=== PATIENT | male | born 1970 | race Caucasian/White ===

== ENCOUNTER 2020-08-10 21:05 | Emergency (ER) | payer MEDICAID ==
[~2020-08-10] VITALS: Ht 175.3 cm; Wt 72.6 kg
[2020-08-10 21:10] VITALS: BP 137/77
[2020-08-10] MEDS ORDERED: PANTOPRAZOLE 40 MG VIAL ONE (21:26)
[2020-08-10] MEDS ORDERED: ONDANSETRON HCL/PF 4 MG/2 ML VIAL ONE (21:26)
[2020-08-10] MEDS ORDERED: PROCHLORPERAZINE EDISYLATE 10 MG/2 ML VIAL IVP ONE (21:30)
[2020-08-10] MEDS ORDERED: IV NS 0.9% 1,000 ML BAG IV ONE (21:30)
[2020-08-10] MEDS ORDERED: MORPHINE SULFATE INJ 4 MG/ML DISP.SYRIN IV ONE (21:30)
[2020-08-10] MEDS ORDERED: PANTOPRAZOLE 40 MG VIAL IV ONE (21:30)
[2020-08-10] MEDS ORDERED: ONDANSETRON HCL/PF 4 MG/2 ML VIAL IVP ONE (21:30)
[2020-08-10 21:42] LABS: BASOPHILS % (AUTO) 0.7 % (0.0-2.0); EOSINOPHILS % (AUTO) 0.7 % (0.0-6.0); HEMATOCRIT 28 % (39-51); HEMOGLOBIN 9.2 g/dL (13.5-17.5); LYMPHOCYTES # (AUTO) 1.1 /CMM (0.8-4.8); LYMPHOCYTES % (AUTO) 30.1 % (20.0-44.0); MEAN CORPUSCULAR HGB CONC 33 g/dl (31.0-36.0); MEAN CORPUSCULAR VOLUME 87 fL (80-96); MONOCYTES # (AUTO) 0.4 /CMM (0.1-1.30); MONOCYTES % (AUTO) 11.8 % (2.0-12.0); NEUTROPHILS # (AUTO) 2.1 /CMM (1.8-8.9); NEUTROPHILS % (AUTO) 56.7 % (43.0-81.0); PLATELET COUNT (AUTO) 236 /CMM (150-450); RED BLOOD CELL COUNT(AUTO) 3.27 MIL/uL (4.5-6.0); WHITE BLOOD COUNT (AUTO) 3.7 K/uL (4.3-11.0)
--- NOTE | 2020-08-10 21:51 | NUR ---
PT REFUSED ALL MEDS
--- NOTE | 2020-08-10 21:52 | NUR ---
PT WAS APPROACHED BY ED PROVIDER RE: MULTIPLE ER VISITS. PT WAS JUST SEEN AT [facility]. PT REFUSES TO CONTINUE ANY TREATMENTS AT THIS TIME. PER DARIUSZ TORRES, PT MAY GO. PT DID NOT WANT TO WAIT FOR D/C INSTRUCTION OR TO SIGN AMA FROM. PIV REMOVED, NAD, VSS. AWARE OF RISKS OF LEAVING BEFORE TX DONE
[2020-08-10 22:45] LABS: CALCIUM, SERUM 8.3 mg/dL (8.5-10.1); CREATININE 0.8 mg/dL (0.6-1.3); POTASSIUM 3.3 mmol/L (3.5-5.1)
[2020-08-10 22:50] LABS: ALBUMIN 3.7 g/dL (3.4-5.0); BILIRUBIN,DIRECT 0.1 mg/dL (0.0-0.2); BILIRUBIN,TOTAL 0.5 mg/dL (0.2-1.0); TOTAL PROTEIN, SERUM 7.1 g/dL (6.4-8.2)
== END 2020-08-10 21:58 | disposition left against medical advice (07) ==
LOC: ER 21:09
DX: F11.10 Opioid abuse, uncomplicated (principal); D64.9 Anemia, unspecified; D72.819 Decreased white blood cell count, unspecified; Z76.5 Malingerer [conscious simulation]; I10 Essential (primary) hypertension; Z90.89 Acquired absence of other organs; Z98.890 Other specified postprocedural states; Z88.6 Allergy status to analgesic agent; Z60.2 Problems related to living alone; Z87.891 Personal history of nicotine dependence
CPT/HCPCS: 36415; 80048; 80076; 83690; 85025; 99283; J7030; C9113; J2405